=== PATIENT | male | born 2000 | race Caucasian/White ===

== ENCOUNTER 2020-08-22 13:44 | Emergency (ER) | payer OTHER, SELFPAY ==
[2020-08-22 13:45] VITALS: BP 128/76; PULSE 69; RESP 16; TEMP 36.6; O2SAT 99; BMI 28.3
--- NOTE | 2020-08-22 14:10 | [facility].EDGENADL ---
ED Disposition Clinical Impression: Superficial burn of back of left hand Qualifiers: Encounter type: initial encounter Qualified Code(s): T23.162A - Burn of first degree of back of left hand, initial encounter Disposition: Home, Self-Care Condition on Discharge: Good Prescriptions: Bacitracin 1 applicatio OP TID #15 g Prescription Printed Referrals: PCP,No [Primary Care Provider] - - Critical Care Critical Care Time: No Attestation: On 08/22/20, the high probability of a clinically significant, sudden or life threatening deterioration of the following system(s) required my full and direct attention, intervention and personal management. The time I documented below is in addition to time spent performing reported procedures but includes the following listed in this critical care notation. Medical Decision Making - Medical Records Medical records reviewed: Yes: I reviewed the patient's medical records. - Tee Inquiry Pt receiving controlled substance: No Vital Signs: 08/22/20 13:45 Temperature 98 F Temperature Source Oral Pulse Rate [Radial] 69 Respiratory Rate 16 Blood Pressure [Right Arm] 128/76 Blood Pressure Mean [Right Arm] 93 Blood Pressure Position [Right Arm] Sitting 02 Sat by Pulse Oximetry 99 Oxygen Delivery Method Room Air Medical Decision Narrative: 19-year-old male presenting to the emergency department with superficial burn to his left hand. This is on the dorsal aspect of the hand. There is no evidence of infection. I did apply some manual pressure and drained some serous fluid from the blistering. Will apply topical bacitracin and sterile dressing. Patient is to follow-up with his PCP in 48 hours. Given strict return precautions. Verbalized understanding. General Adult HPI - General Chief complaint: Burn/Smoke Inhalation Stated complaint: burned left hand Time Seen by Provider: 08/22/20 13:50 Mode of Arrival: Ambulatory Limitations: No Limitations Description of Symptoms (Recalled from ER Triage Doc. by RN): TO ED PER [facility] WITH C/O BURN TO LT DORSAL RING FINGER, STATES HE WAS CLEANING A GRILL LASTNIGHT AND BURNED HAND. BLISTER INTACT. - History of Present Illness HPI narrative: 19-year-old male presented to the emergency department with a burn on his left hand. The patient sustained this last night while he was at work. He states that some grease splashed onto his left hand while he was cleaning the grill. The patient placed an ice pack on it and states that it got better. He had some blistering this morning which prompted him to come the emergency department. Patient is some mild pain in the area. Not stated any other injuries. Tetanus is up-to-date. No headache or change in vision. No chest pain or shortness of breath. No abdominal pain or vomiting. - Related Data Previous Rx's Medication Instructions Recorded cephALEXin [Keflex 500mg Cap] 500 mg PO QID #28 cap 07/14/19 Bacitracin 1 applicatio OP TID #15 g 08/22/20 Allergies Allergy/AdvReac Type Severity Reaction Status Date / Time No Known Allergies Allergy Verified 07/14/19 00:26 [facility] History - Hepatitis A Screen Drug use history?: No High risk sexual behaviors?: No History of sexually transmitted infection?: No Currently employed?: No Childcare worker?: No Do you have indoor plumbing?: Yes Do you have electricity?: Yes Attestation statement:: This patient has been screened for Hepatitis A risk factors. I have reviewed the patient's past medical history: Yes Medical History: Denies:: Cancer, Diabetes Mellitus Type 1, Diabetes Mellitus Type 2, MRSA - Social History Smoking Status: Heavy tobacco smoker Tobacco Type: smokeless tobacco # Packs/Day (cigarettes): 1 Alcohol Intake: current Alcohol Intake Frequency:: a few times a week Occupational Status: employed ROS Obtained: Yes All systems reviewed & no additional complaints - Constitutional Constitutional: Denies chills,
[2020-08-22 14:35] VITALS: BP 120/74; PULSE 78; RESP 16; TEMP 36.6; O2SAT 98
== END 2020-08-22 14:36 | disposition home or self-care (01) ==
PROVIDERS: Emergency Provider Emergency Medicine
DX: T23.162A Burn of first degree of back of left hand, initial encounter (principal); T23.122A Burn of first degree of single left finger (nail) except thumb, initial encounter; X17.XXXA Contact with hot engines, machinery and tools, initial encounter; Y93.G2 Activity, grilling and smoking food; Y92.019 Unspecified place in single-family (private) house as the place of occurrence of the external cause; F17.290 Nicotine dependence, other tobacco product, uncomplicated
CPT/HCPCS: 99281